=== PATIENT | female | born 1990 | race Caucasian/White ===

== ENCOUNTER 2018-11-28 15:52 | Observation (INO) ==
[2018-11-28] MEDS ORDERED: ZOFRAN IV ONE (17:37)
[2018-11-28] MEDS ORDERED: NS 1,000 ML IV ONE ×3 (17:37→22:07)
[2018-11-28] MEDS ORDERED: TYLENOL PO ONE (17:38)
--- NOTE | 2018-11-28 17:38 | PROVIDER DOCUMENTATION ---
HPI-General Adult - General Chief Complaint: Female Stated Complaint: FEMALE Time Seen by Provider: 11/28/18 17:33 Source: patient Allergies/Adverse Reactions: Patient Allergies Allergy/AdvReac Type Severity Reaction Status Date / Time No Known Allergies Allergy Verified 11/28/13 12:01 Home Medications: Home Medication List Medication Instructions Recorded Confirmed Last Taken Type Pnv Cmb#95/Ferrous Fumarate/FA 1 tab PO DAILY 11/28/13 11/28/13 Unknown History [ Tablet] Amoxicillin [Amoxil] 11/22/18 11/22/18 Unknown History Promethazine [Phenergan] 25 mg PO Q6H PRN PRN #20 tab 11/28/18 Unknown Rx - History of Present Illness -Gen Adult Nature of Presenting Problems: Pt. is 28 yof that presents with c/o abd pain and vaginal bleeding after taking cytotec given to her by her OB. Pt. reports she had a non-viable and her OB (Dr. Brownlee) gave her the medications. Pt. denies any other complaints. Location of Pain/Injury: reports: abdomen. denies: none, head, face, mouth, neck, chest, upper extremity, hand(s), back, pelvis, genitalia, lower extremity, feet, upper body, lower body, generalized, other Pain Radiation: reports: no radiation. denies: arm(s), back, buttocks, chest, epigastric, feet, groin, jaw, flank (L), legs (lower), LLQ, LUQ, neck, periumbilical, flank (R), RLQ, RUQ, shoulder(s), scapula, scrotal, sternal notch, suprapubic, legs (upper), urethral, vaginal, other Quality of Pain: reports: aching, cramping. denies: burning, pressure, sharp, throbbing, tightness Severity: reports: moderate. denies: mild, severe Onset/Duration: reports: abrupt, this morning Timing: reports: still present. denies: improving, constant, getting worse Context/Activities at Onset: reports: none. denies: light activity, moderate activity, vigorous activity, recent emotional stress, recent physical stress, recent trauma history, possible bad food, cold exposure, eating, out of country travel, rest, sleep, sexual activity, other Modifying Factors: improves with: nothing Associated Symptoms: reports: genitourinary problems. denies: denies symptoms, anxiety, arm pain, back/neck pain, chest pain, constipation, cough, diaphoresis, diarrhea, dizziness, EENT symptoms, fatigue, fever/chills, headaches, heartburn, joint pain, loss of appetite, malaise, muscle aches, sinus congestion/drainage, nausea, rash, seizure, shortness of breath, sensory/motor loss, pain with inspiration, swelling/mass in abdomen, syncope, vomiting, weakness, trouble walking, other Similar Symptoms Previously?: No Recently seen or treated by another doctor?: No Review of Systems - Adult - REVIEW OF SYSTEMS - ADULT Constitutional: reports: no symptoms reported Eyes: reports: no symptoms reported Ears, Nose, Mouth & Throat: reports: no symptoms reported Cardiovascular: reports: no symptoms reported Respiratory: reports: no symptoms reported Gastrointestinal: reports: see HPI, abdominal pain, nausea. denies: constipation, diarrhea, vomiting Genitourinary: reports: no symptoms reported Musculoskeletal: reports: no symptoms reported Integumentary: reports: no symptoms reported Neurological: reports: no symptoms reported Psychiatric: reports: no symptoms reported Past History - Adult - PAST MEDICAL HISTORY-ADULT Review of Records: reports: Old Records Reviewed, Nursing Assessment Review, Medications Reviewed, Social history reviewed & non-contributory. - IMMUNIZATION STATUS Childhood Immunizations: See Nurse Assessment Flu Vaccine: See Nurse Assessment - FAMILY HISTORY Family History: reviewed, not pertinent - SOCIAL HISTORY Smoking: cigarettes, greater than 1 pack/day Provider spent 3-5 mins advising pt. on dangers of tobacco.: Discussed manners to quit use, and f/u contacts for add'l counseling. Physical Exam-General - PHYSICAL EXAM-ADULT Initial Vital Signs Reviewed: Yes - CONSTITUTIONAL General Appearance: alert, moderate distress, thin. negative: anxious, slow to respond, obtunded, combative - EYES Eyes: PERRL/EOMI, pink conjunctivae - HEAD, EARS, NOSE, MOUTH & THROAT HENMT: normocephalic/atraumatic, moist mucous membranes - NECK Neck: non-tender, full range of motion, supple, normal inspection - RESPIRATORY Respiratory: lungs clear, normal breath sounds - CARDIOVASCULAR Cardiovascular: regular rate, rhythm, no edema, tachycardia - GASTROINTESTINAL (ABDOMEN) Abdominal Exam: normal bowel sounds, soft, tenderness. negative: distended, guarding, rigid, rebound, hernia, mass - LYMPHATIC Lymphatic: no adenopathy. negative: axilla node tender, cervical node tenderness - MUSCULOSKELETAL Back Exam: normal inspection, no CVA tenderness, no vertebral tenderness Extremity: normal range of motion, non-tender, normal gait, normal inspection Peripheral Pulses: radial (R): 2+, radial (L): 2+ - SKIN Integumentary: normal turgor, pallor. negative: cyanosis, erythema, jaundice, mottled, tenderness, warm - NEUROLOGIC Neurologic: grossly normal, no motor/sensory deficits - PSYCHIATRIC Psych/Mental Status: normal mood/affect, normal thought content, normal thought process, oriented x 3. negative: anxious, paranoid, tearful Progress - PLAN OF CARE/RESULTS Progress/Plan/Lab Results: Vital Signs - 8 hr 11/28/18 16:15 Temperature 99.1 F Pulse Rate 123 H Respiratory Rate 20 Blood Pressure 111/73 O2 Sat by Pulse Oximetry 97 Orders Category Date Time Status Saline Loc NOW Care 11/28/18 17:36 Ordered CBC WITH ELECTRONIC DIFF [HEME] Stat Lab 11/28/18 17:36 Uncollected COMPREHENSIVE METABOLIC PANEL [CHEM] Stat Lab 11/28/18 17:36 Uncollected URINALYSIS W/POSS RFLX CULT [URINALYSIS] Stat Lab 11/28/18 17:37 Uncollected Ns 1000 ml IV Bolus X1 Med 11/28/18 17:37 Ordered 0.9% Sodium Chloride Inj [Ns] 1,000 ml IV 999 mls/hr Ondansetron [Zofran] Med 11/28/18 17:37 Once 4 mg IV NOW ONE Laboratory Tests 11/28/18 11/28/18 11/28/18 17:48 17:48 17:48 WBC 7.56 RBC 3.83 L Hgb 11.3 L Hct 33.3 L MCV 86.9 MCH 29.5 MCHC 33.9 RDW Std Deviation 13.5 Plt Count 282 MPV 9.3 Immature Gran % (Auto) 0.0 Neut % (Auto) 69.6 Lymph % (Auto) 19.7 L Nash % (Auto) 7.1 Eos % (Auto) 3.3 Baso % (Auto) 0.3 Immature Gran # (Auto) 0.00 Neut # (Auto) 5.26 Lymph # (Auto) 1.49 Nash # (Auto) 0.54 Eos # (Auto) 0.25 Baso # (Auto) 0.02 Sodium 138 Potassium 3.8 Chloride 104 Carbon Dioxide 23 L Anion Gap 11 BUN 15 Creatinine 0.7 Estimated GFR/1.73 m2 > 60 BUN/Creatinine Ratio 21 Glucose 104 Calculated Osmolality 277 Calcium 8.9 Total Bilirubin 0.25 AST 18 ALT 16 Alkaline Phosphatase 97 Total Protein 6.4 Albumin 4.1 Globulin 2.3 Albumin/Globulin Ratio 1.8 Urine Source Urine Color Urine Turbidity Urine pH Ur Specific [place] Urine Protein Ur Glucose (Stick) Ur Ketones (Stick) Urine Blood Urine Nitrite Urine Bilirubin Urobilinogen Dipstick Urine Leukocytes Urine WBC (Auto) Urine RBC (Auto) U Epithel Cells (Auto) Urine Bacteria (Auto) Blood Type O POSITIVE Antibody Screen NEGATIVE 11/28/18 18:34 WBC RBC Hgb Hct MCV MCH MCHC RDW Std Deviation Plt Count MPV Immature Gran % (Auto) Neut % (Auto) Lymph % (Auto) Nash % (Auto) Eos % (Auto) Baso % (Auto) Immature Gran # (Auto) Neut # (Auto) Lymph # (Auto) Nash # (Auto) Eos # (Auto) Baso # (Auto) Sodium Potassium Chloride Carbon Dioxide Anion Gap BUN Creatinine Estimated GFR/1.73 m2 BUN/Creatinine Ratio Glucose Calculated Osmolality Calcium Total Bilirubin AST ALT Alkaline Phosphatase Total Protein Albumin Globulin Albumin/Globulin Ratio Urine Source CATH Urine Color YELLOW Urine Turbidity CLEAR Urine pH 5.5 Ur Specific [place] 1.027 Urine Protein NEGATIVE Ur Glucose (Stick) NEGATIVE Ur Ketones (Stick) NEGATIVE Urine Blood MODERATE A Urine Nitrite NEGATIVE Urine Bilirubin NEGATIVE Urobilinogen Dipstick NORMAL Urine Leukocytes NEGATIVE Urine WBC (Auto) <10 Urine RBC (Auto) 20-40 A U Epithel Cells (Auto) <10 Urine Bacteria (Auto) NEGATIVE Blood Type Antibody Screen Discussed results and plan of care with patient. Patient agrees with plan and verbalizes understanding. Result Diagrams: 11/28/18 17:48 11/28/18 17:48 Departure - Departure Date of Disposition Decision: 11/28/18 Time of Disposition Decision: 20:27 DIAGNOSIS: Vaginal bleeding, Pelvic cramping Disposition: HOME 01 Certified Medical Emergency: Emergent Condition: Stable Additional Freetext Instructions: ED Follow Up Instructions: You have been treated by a care provider in the Emergency Department. These instructions are being provided to you so you can have an understanding of how to care for yourself upon discharge. Upon discharge from the Emergency Department, you are responsible for making arrangements for follow-up care by a physician of your choice. Take all prescribed medications as directed. Return to the Emergency Department immediately for any new or worsening symptoms. You may call the Physician Referral phone number at [phone] to obtain a list of Physicians who are taking new patients. Prescriptions: Promethazine [Phenergan] 25 mg PO Q6H PRN PRN #20 tab PRN Reason: Nausea Referrals and Follow-Ups: None,PCP [Primary Care Provider] - Work Excuses: Return to School/Parent Work Discharge Education: Abnormal Uterine Bleeding, [id number] - Critical Care Note This patient required my direct & personal management of CC.: No Attestation - Physician/ JAYANT Attestation Patient care was provided by Advanced Practice Provider:: Yes Advanced Practice Provider:: Joel Peacock Advanced Practice Provider documentation review:: The Mid-level provider documentation, treatment plan and medical decision making was reviewed by the physician who agrees with all treatment and medical decision making by the MLP. The physician spent face to face time with patient:: No Advanced Practice Provider documentation review:: Supervising physician onsite and consulted in the evaluation and care of this patient. The physician did not have a face to face encounter with the patient.
[2018-11-28 18:30] LABS: HEMATOCRIT 33.3 % (37.0-47.0); HEMOGLOBIN 11.3 g/dL (12.0-16.0); MCH 29.5 PG (27-31); MCHC 33.9 g/dL (33-37); MCV 86.9 FL (81-99); PLT 282 X1000 (130-400); RBC 3.83 XMIL (4.2-5.4); RDW 13.5 % (11.5-14.5); WBC 7.56 X1000 (4.8-10.8)
[2018-11-28 18:31] LABS: BASO# 0.02 X1000 (0.0-0.2); BASO% 0.3 % (0.0-0.8); EOS# 0.25 X1000 (0.0-0.7); EOS% 3.3 % (0.0-10.0); LYMPH# 1.49 X1000 (1.2-3.4); LYMPH% 19.7 % (20.5-51.1); MONO# 0.54 X1000 (0.11-0.59); MONO% 7.1 % (1.7-9.3); MPV 9.3 FL (7.4-10.4); NEUT# 5.26 X1000 (1.4-6.5); NEUT% 69.6 % (42.2-75.2)
[2018-11-28 18:46] LABS: URINE SOURCE CATH
[2018-11-28 18:51] LABS: BILIRUBIN URINE NEGATIVE (NEGATIVE); BLOOD URINE MODERATE (NEGATIVE); COLOR YELLOW; GLUCOSE URINE NEGATIVE (NEGATIVE); KETONE URINE NEGATIVE (NEGATIVE); LEUKOCYTES URINE NEGATIVE (NEGATIVE); NITRITE URINE NEGATIVE (NEGATIVE); PH URINE 5.5; PROTEIN URINE NEGATIVE (NEGATIVE); SP GRAVITY URINE 1.027; TURBIDITY URINE CLEAR (CLEAR); UROBILINOGEN URINE NORMAL (NORMAL)
[2018-11-28 18:52] LABS: UR EPITHELIAL CELLS <10 /HPF (<10); URINE BACTERIA NEGATIVE /HPF; URINE RBC 20-40 /HPF (<10); URINE WBC <10 /HPF (<10)
[2018-11-28 19:10] LABS: AGAP 11; ALB/GLOB RATIO 1.8; ALBUMIN 4.1 g/dL (3.5-5.0); ALKALINE PHOSPHATASE 97 U/L (32-104); BUN 15 mg/dL (8-22); CALCIUM 8.9 mg/dL (8.8-10.2); CHLORIDE 104 mmol/L (98-107); COSMO 277; CREATININE 0.7 mg/dL (0.5-0.9); ESTIMATED GFR > 60; GLUCOSE 104 mg/dL (70-104); GOT 18 U/L (10-30); GPT 16 U/L (10-36); POTASSIUM 3.8 mmol/L (3.5-5.1); SODIUM 138 mmol/L (136-145); TCO2 23 mmol/L (25-35); TOTAL BILIRUBIN 0.25 mg/dL (0.20-1.00); TOTAL PROTEIN 6.4 g/dL (6.3-8.3)
[2018-11-28] MEDS ORDERED: PHENERGAN IM ONE (20:03)
[2018-11-28] MEDS ORDERED: ATIVAN IV ONE (20:14)
[2018-11-28 22:33] LABS: BASO# 0.03 X1000 (0.0-0.2); BASO% 0.2 % (0.0-0.8); EOS# 0.09 X1000 (0.0-0.7); EOS% 0.5 % (0.0-10.0); HEMATOCRIT 24.5 % (37.0-47.0); HEMOGLOBIN 8.3 g/dL (12.0-16.0); IMM GRAN# 0.05 X1000 (0.0-0.04); IMM GRAN% 0.3 % (0.0-0.5); LYMPH# 1.98 X1000 (1.2-3.4); LYMPH% 11.8 % (20.5-51.1); MCH 29.7 PG (27-31); MCHC 33.9 g/dL (33-37); MCV 87.8 FL (81-99); MONO# 0.72 X1000 (0.11-0.59); MONO% 4.3 % (1.7-9.3); MPV 9.3 FL (7.4-10.4); NEUT# 13.89 X1000 (1.4-6.5); NEUT% 82.9 % (42.2-75.2); PLT 331 X1000 (130-400); RBC 2.79 XMIL (4.2-5.4); RDW 13.3 % (11.5-14.5); WBC 16.76 X1000 (4.8-10.8)
[2018-11-28 22:39] LABS: INR 1.15; PROTIME 15.7 Seconds (11.0-16.0)
[2018-11-28 22:40] LABS: PTT 24.6 Seconds (22.3-41.8)
[2018-11-29] MEDS ORDERED: NS 150 ML IV ONE (02:52)
--- NOTE | 2018-11-29 03:01 | PROVIDER DOCUMENTATION ---
HPI-General Adult - General Chief Complaint: Female Stated Complaint: FEMALE Time Seen by Provider: 11/28/18 17:33 Source: patient, family Allergies/Adverse Reactions: Patient Allergies Allergy/AdvReac Type Severity Reaction Status Date / Time No Known Allergies Allergy Verified 11/28/13 12:01 - History of Present Illness -Gen Adult Nature of Presenting Problems: Patient was discharged by MACHINIST APPRENTICE but when patient stood up to be DC she felt dizzy and had a syncopal episode. Orthostatics were checked and repeat CBC had acutely dropped and patient was signed back in as a patient. See previous note for full story. Review of Systems - Adult - REVIEW OF SYSTEMS - ADULT ROS:: ROS per family Constitutional: reports: see HPI Past History - Adult - PAST MEDICAL HISTORY-ADULT Review of Records: reports: Old Records Reviewed - IMMUNIZATION STATUS Childhood Immunizations: See Nurse Assessment Flu Vaccine: See Nurse Assessment - FAMILY HISTORY Family History: reviewed, not pertinent - SOCIAL HISTORY Smoking: cigarettes, greater than 1 pack/day Physical Exam-General - PHYSICAL EXAM-ADULT Initial Vital Signs Reviewed: Yes - CONSTITUTIONAL General Appearance: alert, mild distress - EYES Eyes: PERRL/EOMI - HEAD, EARS, NOSE, MOUTH & THROAT HENMT: normocephalic/atraumatic - NECK Neck: non-tender, full range of motion, supple - RESPIRATORY Respiratory: chest non-tender, lungs clear, normal breath sounds - CARDIOVASCULAR Cardiovascular: normal peripheral pulses, regular rate, rhythm - GASTROINTESTINAL (ABDOMEN) Abdominal Exam: normal bowel sounds, non tender, soft - MUSCULOSKELETAL Extremity: normal range of motion, non-tender, normal gait - SKIN Integumentary: warm/dry, pallor - NEUROLOGIC Neurologic: grossly normal - PSYCHIATRIC Psych/Mental Status: normal mood/affect, oriented x 3 Progress - PLAN OF CARE/RESULTS Progress/Plan/Lab Results: Vital Signs - 8 hr 11/28/18 19:11 11/28/18 19:32 11/28/18 21:36 Temperature Pulse Rate Respiratory Rate Blood Pressure 111/69 106/63 100/66 O2 Sat by Pulse Oximetry 98 98 99 11/28/18 21:38 11/28/18 22:17 11/28/18 22:32 Temperature 97.8 F Pulse Rate 86 Respiratory Rate 16 Blood Pressure 100/66 93/61 96/64 O2 Sat by Pulse Oximetry 99 100 99 11/28/18 22:56 11/28/18 23:02 11/28/18 23:12 Temperature Pulse Rate Respiratory Rate Blood Pressure 104/61 99/58 96/60 O2 Sat by Pulse Oximetry 100 99 99 11/28/18 23:22 11/28/18 23:30 11/28/18 23:32 Temperature Pulse Rate Respiratory Rate Blood Pressure 112/62 99/57 103/59 O2 Sat by Pulse Oximetry 100 99 99 11/28/18 23:42 11/28/18 23:52 11/29/18 00:02 Temperature Pulse Rate Respiratory Rate Blood Pressure 100/60 95/58 97/59 O2 Sat by Pulse Oximetry 99 100 98 11/29/18 00:16 11/29/18 00:22 11/29/18 00:32 Temperature Pulse Rate Respiratory Rate Blood Pressure 93/51 91/60 91/55 O2 Sat by Pulse Oximetry 98 99 11/29/18 01:14 11/29/18 01:20 11/29/18 01:32 Temperature Pulse Rate Respiratory Rate Blood Pressure 93/65 91/58 O2 Sat by Pulse Oximetry 100 100 100 11/29/18 02:02 11/29/18 02:29 11/29/18 02:32 Temperature 98.6 F Pulse Rate 104 H Respiratory Rate 20 Blood Pressure 96/53 94/62 99/66 O2 Sat by Pulse Oximetry 98 99 100 11/29/18 02:40 11/29/18 02:41 11/29/18 02:50 Temperature 98.6 F 98.5 F Pulse Rate 104 H 98 H Respiratory Rate 20 20 Blood Pressure 95/62 95/62 91/56 O2 Sat by Pulse Oximetry 98 98 98 11/29/18 02:54 Temperature 98.4 F Pulse Rate 106 H Respiratory Rate 20 Blood Pressure 96/61 O2 Sat by Pulse Oximetry 99 Laboratory Results - last 24 hr 11/28/18 11/28/18 11/28/18 17:48 17:48 17:48 WBC 7.56 RBC 3.83 L Hgb 11.3 L Hct 33.3 L MCV 86.9 MCH 29.5 MCHC 33.9 RDW Std Deviation 13.5 Plt Count 282 MPV 9.3 Immature Gran % (Auto) 0.0 Neut % (Auto) 69.6 Lymph % (Auto) 19.7 L Walsh % (Auto) 7.1 Eos % (Auto) 3.3 Baso % (Auto) 0.3 Immature Gran # (Auto) 0.00 Neut # (Auto) 5.26 Lymph # (Auto) 1.49 Walsh # (Auto) 0.54 Eos # (Auto) 0.25 Baso # (Auto) 0.02 PT INR PTT (Actin FS) Fibrinogen Sodium 138 Potassium 3.8 Chloride 104 Carbon Dioxide 23 L Anion Gap 11 BUN 15 Creatinine 0.7 Estimated GFR/1.73 m2 > 60 BUN/Creatinine Ratio 21 Glucose 104 Calculated Osmolality 277 Calcium 8.9 Total Bilirubin 0.25 AST 18 ALT 16 Alkaline Phosphatase 97 Total Protein 6.4 Albumin 4.1 Globulin 2.3 Albumin/Globulin Ratio 1.8 Ser , Semi-Qnt Urine Source Urine Color Urine Turbidity Urine pH Ur Specific [place] Urine Protein Ur Glucose (Stick) Ur Ketones (Stick) Urine Blood Urine Nitrite Urine Bilirubin Urobilinogen Dipstick Urine Leukocytes Urine WBC (Auto) Urine RBC (Auto) U Epithel Cells (Auto) Urine Bacteria (Auto) Blood Type O POSITIVE Antibody Screen NEGATIVE Crossmatch See Detail 11/28/18 11/28/18 11/28/18 18:34 22:10 22:10 WBC 16.76 H D RBC 2.79 L Hgb 8.3 L D Hct 24.5 L D MCV 87.8 MCH 29.7 MCHC 33.9 RDW Std Deviation 13.3 Plt Count 331 MPV 9.3 Immature Gran % (Auto) 0.3 Neut % (Auto) 82.9 H Lymph % (Auto) 11.8 L Walsh % (Auto) 4.3 Eos % (Auto) 0.5 Baso % (Auto) 0.2 Immature Gran # (Auto) 0.05 H Neut # (Auto) 13.89 H Lymph # (Auto) 1.98 Walsh # (Auto) 0.72 H Eos # (Auto) 0.09 Baso # (Auto) 0.03 PT 15.7 INR 1.15 PTT (Actin FS) 24.6 Fibrinogen Sodium Potassium Chloride Carbon Dioxide Anion Gap BUN Creatinine Estimated GFR/1.73 m2 BUN/Creatinine Ratio Glucose Calculated Osmolality Calcium Total Bilirubin AST ALT Alkaline Phosphatase Total Protein Albumin Globulin Albumin/Globulin Ratio Ser , Semi-Qnt Urine Source CATH Urine Color YELLOW Urine Turbidity CLEAR Urine pH 5.5 Ur Specific [place] 1.027 Urine Protein NEGATIVE Ur Glucose (Stick) NEGATIVE Ur Ketones (Stick) NEGATIVE Urine Blood MODERATE A Urine Nitrite NEGATIVE Urine Bilirubin NEGATIVE Urobilinogen Dipstick NORMAL Urine Leukocytes NEGATIVE Urine WBC (Auto) <10 Urine RBC (Auto) 20-40 A U Epithel Cells (Auto) <10 Urine Bacteria (Auto) NEGATIVE Blood Type Antibody Screen Crossmatch 11/28/18 11/29/18 22:10 01:45 WBC RBC Hgb Hct MCV MCH MCHC RDW Std Deviation Plt Count MPV Immature Gran % (Auto) Neut % (Auto) Lymph % (Auto) Walsh % (Auto) Eos % (Auto) Baso % (Auto) Immature Gran # (Auto) Neut # (Auto) Lymph # (Auto) Walsh # (Auto) Eos # (Auto) Baso # (Auto) PT INR PTT (Actin FS) Fibrinogen 169.0 L Sodium Potassium Chloride Carbon Dioxide Anion Gap BUN Creatinine Estimated GFR/1.73 m2 BUN/Creatinine Ratio Glucose Calculated Osmolality Calcium Total Bilirubin AST ALT Alkaline Phosphatase Total Protein Albumin Globulin Albumin/Globulin Ratio Ser , Semi-Qnt 98543.0 Urine Source Urine Color Urine Turbidity Urine pH Ur Specific [place] Urine Protein Ur Glucose (Stick) Ur Ketones (Stick) Urine Blood Urine Nitrite Urine Bilirubin Urobilinogen Dipstick Urine Leukocytes Urine WBC (Auto) Urine RBC (Auto) U Epithel Cells (Auto) Urine Bacteria (Auto) Blood Type Antibody Screen Crossmatch Orders Category Date Time Status Admit - [facility] Routine AdmDCTranf 11/29/18 02:56 Active FSBS [Finger Stick Blood Sugar (ED)] DIRECTED Care 11/28/18 22:07 Active Saline Loc NOW Care 11/28/18 17:36 Active Transfuse .Give-Transfuse Care 11/29/18 00:17 Active NPO Except MEDICATIONS Diet 11/28/18 17:38 Completed US PELVIC NON-OB COMPLETE [US] Stat Exams 11/29/18 00:37 Taken CBC WITH DIFF [HEME] Stat Lab 11/29/18 06:00 Uncollected CBC WITH ELECTRONIC DIFF [HEME] Stat Lab 11/28/18 17:48 Completed CBC WITH ELECTRONIC DIFF [HEME] Stat Lab 11/28/18 22:10 Completed COMPREHENSIVE METABOLIC PANEL [CHEM] Stat Lab 11/28/18 17:48 Completed FIBRINOGEN [COAG] Stat Lab 11/28/18 22:10 Completed PRBC [LRPC (RED CELLS)] [BBK] Stat Lab 11/29/18 01:07 Results PROTIME WITH INR [COAG] Stat Lab 11/28/18 22:10 Completed PTT [COAG] Stat Lab 11/28/18 22:10 Completed QUANT TEST Stat Lab 11/28/18 23:59 Completed TYPE & SCREEN [BBK] Stat Lab 11/28/18 17:48 Results URINALYSIS W/POSS RFLX CULT [URINALYSIS] Stat Lab 11/28/18 18:34 Completed 0.9% Sodium Chloride Inj [Ns] 1,000 ml Med 11/28/18 17:37 Discontinued IV 999 mls/hr 0.9% Sodium Chloride Inj [Ns] 1,000 ml Med 11/28/18 20:22 Discontinued IV 999 mls/hr 0.9% Sodium Chloride Inj [Ns] 1,000 ml Med 11/28/18 22:07 Discontinued IV 999 mls/hr 0.9% Sodium Chloride Inj [Ns] 150 ml Med 11/29/18 02:52 Active IV DIRECTED Acetaminophen [Tylenol] Med 11/28/18 17:38 Discontinued 1,000 mg PO NOW ONE Lorazepam [Ativan] Med 11/28/18 20:14 Discontinued 1 mg IV NOW ONE Ondansetron [Zofran] Med 11/28/18 17:37 Discontinued 4 mg IV NOW ONE Promethazine [Phenergan] Med 11/28/18 20:03 Discontinued 12.5 mg IM NOW ONE Transfer/Admit Order [TRANSFER] Routine Transfer 11/29/18 02:57 Ordered atient was discharged by MACHINIST APPRENTICE but when patient stood up to be DC she felt dizzy and had a syncopal episode. Orthostatics were checked and repeat CBC had acutely dropped and patient was signed back in as a patient. See previous note for full story. Orthostatics were checked and her BP dropped to the 60s upon standing. Repeat CBC was checked and her Hgb dropped to 8 from 11. hypotension could be 2.2 to ativan, however could also be 2.2 to acute anemia and worsening bleeding. Mother states that when she had her first baby they had a hard time stopping her bleeding. Patient was given NS bolus and skilled nursing case manager was called. Stated likely 2.2 to ativan and to give fluids and get repeat HCG and US, no admission or transfusion at this time. While waiting for results and patient to finish getting fluids she sat on a bedside commode to ahve a BM and her BP again bottomed out to 60s and she had another episode of vasovagal syncope. Pad saturated at this time. I assessed the patient and decision was made to transfuse the patient given her BP and her symptoms. Spoke to Dr Foley, again director of collections and archives for [employer] Program Coordinator who accepted the patient for admission. Wanted her in only 23 hour OBS status and 150cc/hr NS. He will see her in the morning and do her H&P. He is ok with her staying here at [facility]. Result Diagrams: 11/28/18 22:10 11/28/18 17:48 - ULTRASOUND (By Radiology) 1 US Study: Transvaginal (EXAM: US PELVIC NON-OB COMPLETE HISTORY: MISCARRIAGE TECHNIQUE: pelvic ultrasound COMPARISON: None. FINDINGS: The uterus measures 12.5 x 7.6 x 6.1 cm. The two [place] of endometrial combined measure 9 mm. There is a small amount of fluid in the cervix. No gestational sac. The ovaries are normal. Tiny amount of fluid in the cul-de-sac. No adnexal mass. IMPRESSION: Neither an intrauterine nor an ectopic identified. Trace free pelvic fluid. A preliminary report was given at 1:38 AM Electronically signed by Dante Edmonds 11/29/2018 6:08 AM 11/29/18 0608 Interpreting Physician: Dante Edmonds MD Dictated Date/Time: 11/29/18 0605 cc: Taina Awad; None,PCP) Departure - Departure Date of Disposition Decision: 11/29/18 Time of Disposition Decision: 02:58 DIAGNOSIS: Vaginal bleeding, Pelvic cramping, Acute anemia, Syncope due to orthostatic hypotension, Orthostatic hypotension Disposition: ADMITTED INPATIENT 09 Certified Medical Emergency: Emergent Condition: Critical - Critical Care Note This patient required my direct & personal management of CC.: Yes Total Time (mins): 75 Critical Care Statement: This patient required my direct personal management to treat or rule out processes, the absence of which, could potentiallly result in sudden, clinically significant life or limb threatening deterioration. Attestation - Physician/ JAYANT Attestation Patient care was provided by Advanced Practice Provider:: No The physician spent face to face time with patient:: Yes Advanced Practice Provider documentation review:: Supervising physician onsite and consulted in the evaluation and care of this patient. The physician did have a face to face encounter with the patient.
[2018-11-29] MEDS ORDERED: NS 1,000 ML IV ONE (03:02)
--- NOTE | 2018-11-29 06:10 | Diag Imaging Result Doc PS360 ---
EXAM: US PELVIC NON-OB COMPLETE HISTORY: MISCARRIAGE TECHNIQUE: pelvic ultrasound COMPARISON: None. FINDINGS: The uterus measures 12.5 x 7.6 x 6.1 cm. The two [place] of endometrial combined measure 9 mm. There is a small amount of fluid in the cervix. No gestational sac. The ovaries are normal. Tiny amount of fluid in the cul-de-sac. No adnexal mass. IMPRESSION: Neither an intrauterine nor an ectopic identified. Trace free pelvic fluid. A preliminary report was given at 1:38 AM Electronically signed by Dante Edmonds 11/29/2018 6:08 AM
[2018-11-29 08:38] LABS: BASO# 0.01 X1000 (0.0-0.2); BASO% 0.1 % (0.0-0.8); EOS# 0.05 X1000 (0.0-0.7); EOS% 0.6 % (0.0-10.0); HEMATOCRIT 26.3 % (37.0-47.0); LYMPH# 1.41 X1000 (1.2-3.4); MCH 29.5 PG (27-31); MCHC 34.2 g/dL (33-37); MCV 86.2 FL (81-99); MONO# 0.46 X1000 (0.11-0.59); MONO% 5.9 % (1.7-9.3); MPV 9.1 FL (7.4-10.4); NEUT# 5.92 X1000 (1.4-6.5); NEUT% 75.4 % (42.2-75.2); PLT 212 X1000 (130-400); RBC 3.05 XMIL (4.2-5.4); RDW 13.4 % (11.5-14.5); WBC 7.85 X1000 (4.8-10.8)
[2018-11-29 12:00] VITALS: BP 93/56
--- NOTE | 2018-11-29 14:26 | HISTORY AND PHYSICAL ---
23 Hour Observation HISTORY OF PRESENT ILLNESS: The patient is a 28-year-old white female, who presented to the ER with complaints of heavy vaginal bleeding. The patient had onset of bleeding today. She had been diagnosed with a loss at 6 weeks and was given Cytotec by her drafting clerk Dr. Traylor to help her with her passing her miscarriage. The patient had taken the medication earlier in the day, and then began having heavy vaginal bleeding. While in the emergency room, she had continued bouts of hypotension and was orthostatic. The ER doctor felt that admission was needed for at least 23 hour for evaluation. PAST MEDICAL HISTORY: Unremarkable. PAST SURGICAL HISTORY: x3. The patient also had facial surgery. PAST OB HISTORY: G4, P3. x3. [employer]ING HISTORY: Menarche at age 16. REVIEW OF SYSTEMS: All systems reviewed and noncontributory. FAMILY HISTORY: Unremarkable. SOCIAL HISTORY: Tobacco use none. Alcohol use none. MEDICATIONS: None. ALLERGIES: No known drug allergies. PHYSICAL EXAMINATION: VITAL SIGNS: Height 5 feet 6 inches, weight 140 pounds. Temperature 98.4 degrees, blood pressure 96/50, pulse of 81, and respirations 16. HEENT: Pupils equal, round, and reactive to light and accommodation. Extraocular movements are intact. Oropharynx clear. Neck is supple. No thyromegaly. LUNGS: Clear to auscultation. HEART: Regular rate and rhythm. ABDOMEN: Bowel sounds positive. Soft, nontender. No masses palpated. EXTREMITIES: No clubbing, cyanosis, or edema noted. NEUROLOGIC: Cranial nerves 2-12 grossly intact. Motor 5 out of 5. DIAGNOSTIC: The ultrasound showed no intrauterine , and a small amount of fluid in the cervix. No tissue could be identified. Quantitative value was 12,000, and that had previously been over 31,000 on 11/22. Rh was noted to be positive. ASSESSMENT/PLAN: A 28-year-old, white female, G4, P3, A1 with spontaneous AB and heavy vaginal bleeding. Patient with anemia. She was transfused 2 units and will see what her value is, and ensure that she is comfortable with being discharged once we have stabilized her hemoglobin and hematocrit. cc: Sha Foley III, MD
== END 2018-11-29 13:49 | disposition home or self-care (01) ==
LOC: ED 15:52 → 4N 15:52 → ED 21:47
PROVIDERS: ADMIT Obstetrics & Gynecology; ATTEND Obstetrics & Gynecology
CPT/HCPCS: 36430; 76856; 80053; 81001; 82948; 84702; 85025; 85384; 85610; 85730; 86850; 86900; 86901; 86920; A9270; J2060; J2405; J2550; J7030; P9016; XXXXX